=== PATIENT | male | born 1950 ===

== ENCOUNTER 2024-11-11 06:26 | Day surgery (SDC) | payer MEDICARE, BC, SELFPAY | END 2024-11-11 08:50 | disposition home or self-care (01) | LOC: GI 06:26 | PROVIDERS: ATTENDING PHYSICIAN Internal Medicine Gastroenterology | DX: Z12.11 Encounter for screening for malignant neoplasm of colon (principal); K57.30 Diverticulosis of large intestine without perforation or abscess without bleeding; K63.5 Polyp of colon; Z86.0100 Personal history of colon polyps, unspecified | CPT/HCPCS: 45385; 88305 ==